=== PATIENT | female | born 1975 | race Caucasian/White ===

== ENCOUNTER 2018-04-10 20:55 | Emergency (ER) | payer OTHER ==
[~2018-04-10] VITALS: Ht 154.9 cm; Wt 102.3 kg
[2018-04-10 21:13] VITALS: Ht 154.9 cm; Wt 102.3 kg
[2018-04-10] MEDS ORDERED: GLUCOPHAGE500 MG (21:15)
[2018-04-10] MEDS ORDERED: KLONOPIN1 MG PO (21:15)
[2018-04-10] MEDS ORDERED: LIPITOR20 MG PO (21:16)
[2018-04-10] MEDS ORDERED: PROZAC20 MG PO (21:16)
[2018-04-10] MEDS ORDERED: PRINIVIL20 MG PO (21:16)
[2018-04-10 21:34] LABS: BASOPHILS 0.5 % (0-2); EOSINOPHILS 2.7 % (0-7); HEMATOCRIT 42.6 % (36.0-48.0); HEMOGLOBIN 14.6 g/dL (12-16); IMMATURE GRANULOCYTES 1.1 % (0-5); LYMPHOCYTES 30.7 % (15-50); MCHC 34.3 g/dL (31.0-37.0); MCV 87.7 fL (80.0-100.0); MEAN PLATELET VOLUME 9.7 fL (7.4-10.4); MONOCYTES 8.8 % (2-11); NEUTROPHILS 56.2 % (40-80); PLATELET COUNT 242 10x3/uL (130-400); RBC 4.86 10x6/uL (4.00-5.40); RDW 13.8 % (11.5-14.5); WBC 10.2 10x3/uL (4.8-10.8)
[2018-04-10 22:03] LABS: ALBUMIN 3.3 g/dL (3.4-5.0); ALKALINE PHOSPHATASE 134 U/L (46-116); ALT (SGPT) 54 U/L (10-68); BILIRUBIN - TOTAL 0.36 mg/dL (0.2-1.3); CALC OSMOLALITY 274 mosm/kg (275-300); CALCIUM 9.1 mg/dL (8.5-10.1); CARBON DIOXIDE 25.2 mmol/L (21.0-32.0); CHLORIDE - SERUM 99 mmol/L (98-107); CREATININE - SERUM 0.8 mg/dL (0.6-1.3); GLUCOSE 206 mg/dL (74-106); POTASSIUM - SERUM 3.8 mmol/L (3.5-5.1); PROTEIN - SERUM 6.8 g/dL (6.4-8.2); SODIUM 135 mmol/L (136-145); UREA NITROGEN 10 mg/dL (7-18); eGFR NON AFRICAN AMERICAN 84 mL/min (90-120)
[2018-04-10] MEDS ORDERED: PROTONIX40 MG PO (23:06)
[2018-04-10 23:17] VITALS: BP 132/87
== END 2018-04-10 23:21 | disposition home or self-care (01) ==
LOC: D.ER 20:55
PROVIDERS: Family Medicine
DX: K29.70 Gastritis, unspecified, without bleeding (principal); G89.29 Other chronic pain; R19.5 Other fecal abnormalities; E11.9 Type 2 diabetes mellitus without complications; I10 Essential (primary) hypertension; K21.9 Gastro-esophageal reflux disease without esophagitis; F17.200 Nicotine dependence, unspecified, uncomplicated

== ENCOUNTER 2018-07-03 14:03 | Emergency (ER) | payer OTHER ==
[~2018-07-03] VITALS: Ht 154.9 cm; Wt 106.8 kg
[~2018-07-03 14:03] MED LIST: GLUCOPHAGE500 MG; KLONOPIN1 MG PO; LIPITOR20 MG PO; PRINIVIL20 MG PO; PROTONIX40 MG PO; PROZAC20 MG PO
[2018-07-03 14:20] VITALS: Ht 154.9 cm; Wt 106.8 kg
[2018-07-03] MEDS ORDERED: ROBAXIN500 MG PO (15:49)
[2018-07-03 16:50] VITALS: BP 135/81
== END 2018-07-03 16:51 | disposition home or self-care (01) ==
LOC: D.ER 14:03
DX: R51 Headache (principal); M54.12 Radiculopathy, cervical region; M47.892 Other spondylosis, cervical region; E11.9 Type 2 diabetes mellitus without complications; I10 Essential (primary) hypertension; K21.9 Gastro-esophageal reflux disease without esophagitis

== ENCOUNTER 2019-01-12 21:30 | Observation (INO) | payer OTHER | END 2019-01-14 16:22 | disposition home or self-care (01) | LOC: D.ER 21:30 → D.M3 01-13 01:04 | PROVIDERS: ADMIT Emergency Medicine | DX: R10.13 Epigastric pain (principal); E11.65 Type 2 diabetes mellitus with hyperglycemia; G47.33 Obstructive sleep apnea (adult) (pediatric); J45.909 Unspecified asthma, uncomplicated; K21.9 Gastro-esophageal reflux disease without esophagitis; F41.9 Anxiety disorder, unspecified; D64.9 Anemia, unspecified; R16.0 Hepatomegaly, not elsewhere classified; E66.01 Morbid (severe) obesity due to excess calories; Z68.41 Body mass index [BMI] 40.0-44.9, adult; Z72.0 Tobacco use; R74.8 Abnormal levels of other serum enzymes ==

== ENCOUNTER 2019-06-05 18:39 | Inpatient (IN) | payer OTHER ==
[~2019-06-05] VITALS: Ht 154.9 cm; Wt 103.2 kg
[~2019-06-05 18:39] MED LIST changes: +CARAFATE1 G PO; +NIACIN100 MG PO; +ROBAXIN500 MG PO
[2019-06-05 19:22] LABS: CALC OSMOLALITY 282 mosm/kg (275-300); CALCIUM 8.5 mg/dL (8.5-10.1); CHLORIDE - SERUM 102 mmol/L (98-107); CREATININE - SERUM 0.8 mg/dL (0.6-1.3); GLUCOSE 218 mg/dL (74-106); SODIUM 138 mmol/L (136-145); UREA NITROGEN 12 mg/dL (7-18); eGFR NON AFRICAN AMERICAN 84 mL/min (90-120)
[2019-06-05 19:23] LABS: APTT 26.4 SECONDS (22.8-39.4); INR 0.98 (0.85-1.17); PROTIME 12.5 SECONDS (11.6-15.0)
[2019-06-05 19:30] LABS: BASOPHILS 0.2 % (0-2); EOSINOPHILS 0.3 % (0-7); HEMATOCRIT 41.1 % (36.0-48.0); HEMOGLOBIN 13.6 g/dL (12-16); IMMATURE GRANULOCYTES 1.3 % (0-5); LYMPHOCYTES 19.5 % (15-50); MCH 29.8 pg (26.0-34.0); MCHC 33.1 g/dL (31.0-37.0); MCV 90.1 fL (80.0-100.0); MEAN PLATELET VOLUME 9.7 fL (7.4-10.4); MONOCYTES 8.9 % (2-11); NEUTROPHILS 69.8 % (40-80); PLATELET COUNT 322 10x3/uL (130-400); RBC 4.56 10x6/uL (4.00-5.40); RDW 14.3 % (11.5-14.5)
[2019-06-05 19:39] LABS: ALBUMIN 3.6 g/dL (3.4-5.0); ALKALINE PHOSPHATASE 136 U/L (46-116); ALT (SGPT) 39 U/L (10-68); BILIRUBIN - TOTAL 0.35 mg/dL (0.2-1.3); CKMB 2.3 U/L (0.0-3.6); CREATINE KINASE 251 UL (21-215); PRO BNP 53 pg/mL (0-125); PROTEIN - SERUM 7.1 g/dL (6.4-8.2)
[2019-06-05 19:40] LABS: TROPONIN-I < 0.017 ng/mL (0.000-0.060)
[2019-06-05 19:45] VITALS: BP 154/79
[2019-06-05 21:03] LABS: APPEARANCE CLEAR (CLEAR); BILIRUBIN NEGATIVE (NEGATIVE); COLOR YELLOW (YELLOW); GLUCOSE 100 mg/dL (NEGATIVE); KETONE NEGATIVE (NEGATIVE); NITRITE NEGATIVE (NEGATIVE); PROTEIN NEGATIVE (NEGATIVE); SPECIFIC GRAVITY 1.025 (1.005-1.020); UROBILINOGEN NORMAL (NORMAL)
[2019-06-05 21:46] VITALS: BP 125/65
--- NOTE | 2019-06-05 23:06 | NUR ---
PT AMBULATED TO RESTROOM AT THIS TIME. NO SIGNS DISTRESS. WILL CONTINUE TO MONITOR.
--- NOTE | 2019-06-05 23:36 | NUR ---
LATE ENTRY: 06/05/19 STOP TIME FOR ZOSYN [id number]
--- NOTE | 2019-06-06 00:08 | NUR ---
TURKEY SANDWICH PROVIDED TO PT PER REQUEST. NO SIGNS DISTRESS NOTED. RESPIRATIONS EVEN AND UNLABORED. WILL CONTINUE TO MONITOR.
[2019-06-06] MEDS ORDERED: LIPITOR20 MG PO (00:35)
[2019-06-06 00:37] VITALS: BP 137/82; BMI 43.0
--- NOTE | 2019-06-06 00:40 | NUR ---
RECIEVED REPORT FROM [facility]. VSS, AAOX3, NO S/S OF DISTRESS. PIV LFA 20G PATENT AND INTACT. OCCASIONAL NON-PRODUCTIVE COUGH NOTED. NS INFUSING AT 125MLS/HR ALONGSIDE IV ATBX ON ARRIVAL. PT COMPLAIN OF CHEST AND ABDOMINAL PAIN, STATES ITS A 2/10 AT THIS TIME. PT DENIES ANY FURTHER NEED FOR COMFORT CARE. CTM. CL WITHIN REACH, SR UP X2.
[2019-06-06 04:28] VITALS: BP 133/77
[2019-06-06 05:13] LABS: BASOPHILS 0.2 % (0-2); EOSINOPHILS 0.8 % (0-7); HEMATOCRIT 37.9 % (36.0-48.0); HEMOGLOBIN 12.2 g/dL (12-16); IMMATURE GRANULOCYTES 1.1 % (0-5); MCH 29.2 pg (26.0-34.0); MCHC 32.2 g/dL (31.0-37.0); MCV 90.7 fL (80.0-100.0); MEAN PLATELET VOLUME 9.8 fL (7.4-10.4); MONOCYTES 6.5 % (2-11); NEUTROPHILS 64.4 % (40-80); PLATELET COUNT 285 10x3/uL (130-400); RBC 4.18 10x6/uL (4.00-5.40); RDW 14.6 % (11.5-14.5)
[2019-06-06 05:32] LABS: ALKALINE PHOSPHATASE 114 U/L (46-116); ALT (SGPT) 32 U/L (10-68); BILIRUBIN - TOTAL 0.29 mg/dL (0.2-1.3); CALC OSMOLALITY 283 mosm/kg (275-300); CALCIUM 7.9 mg/dL (8.5-10.1); CARBON DIOXIDE 26.1 mmol/L (21.0-32.0); CHLORIDE - SERUM 105 mmol/L (98-107); CREATININE - SERUM 0.8 mg/dL (0.6-1.3); GLUCOSE 205 mg/dL (74-106); POTASSIUM - SERUM 4.1 mmol/L (3.5-5.1); PROTEIN - SERUM 5.8 g/dL (6.4-8.2); SODIUM 139 mmol/L (136-145); UREA NITROGEN 12 mg/dL (7-18); eGFR NON AFRICAN AMERICAN 84 mL/min (90-120)
[2019-06-06 05:38] LABS: WBC 14.9 10x3/uL (4.8-10.8)
--- NOTE | 2019-06-06 07:15 | NUR ---
PT RESTING IN BED, SHIFT ASSESSMENT PERFORMED. VSS AND WNL. DENIES ANY NEEDS AT THIS TIME, WILL CONT TO FOLLOW POC
[2019-06-06 07:34] VITALS: BP 146/78
--- NOTE | 2019-06-06 08:45 | NUR ---
PT TOOK A SHOWER AND COMPLETE LINEN CHANGE PROVIDED.
[2019-06-06 08:52] VITALS: Ht 154.9 cm; Wt 103.2 kg
[2019-06-06 09:38] LABS: MONO NEGATIVE (NEGATIVE)
[2019-06-06 11:15] VITALS: BP 114/69
--- NOTE | 2019-06-06 12:30 | NUR ---
PT RESTING IN BED EATING LUNCH, DENIES ANY NEEDS AT THIS TIME, WILL CONT TO FOLLOW POC
--- NOTE | 2019-06-06 14:26 | MORECARE ---
CASE MANAGEMENT DISCHARGE SUMMARY PATIENT: LAMIN VYAS UNIT: [id number] ADM DATE: 06/05/19 AGE: 43 : [birth year] SEX: F ROOM/BED: D.1212 AUTHOR: RUBEN QUIROZ PHYSICIAN: REFERRING PHYSICIAN: LISSET OZUNA MD DATE OF SERVICE: 06/06/19 Discharge Plan Patient Name: LAMIN VYAS Facility: [facility]:[place] : 1975 Planned Disposition: Home Anticipated Discharge Date: Discharge Date: Expected LOS: Initial Reviewer: [id number] Initial Review Date: 06/06/2019 Generated: 06/06/19 3:26 pm Comments DCP- Discharge Planning Updated by [email or web address]: Destiney Malcolm on 06/06/19 1:[address] Patient Name: LAMIN VYAS Admission Status: ER Accout number: [id number] Admission Date: 06-05-2019 : 1975 Admission Diagnosis: Attending: LISSET OZUNA Current LOS: 1 Anticipated DC Date: Planned Disposition: Home Primary Insurance: [employer] INS EXCHANGE Discharge Planning Comments: CM MET WITH PATIENT AFTER OBTAINING VERBAL CONSENT. STATES PLANS TO DISCHARGE TO HOME. DISCUSSED NEED FOR HH, REHAB OR EQUIPMENT, PATIENT STATES NO NEEDS. CM WILL FOLLOW AND ASSIST NEEDED. Barrel Rifler Broach: Destiney Malcolm DCPIA - Discharge Planning Initial Assessment Updated by [email or web address]: Destiney Malcolm on 06/06/19 2:19 pm * Is the patient Alert and Oriented? Yes * PCP [place] * Pharmacy [facility] * Preadmission Environment Home with Family * ADLs Independent * Other Equipment CPAP * Additional services required to return to the preadmission environment? No * Can the patient safely return to the preadmission environment? Yes * Has this patient been hospitalized within the prior 30 days at any hospital? No Patient Name: LAMIN VYAS Page [id number] at 8316 All edits/amendments must be made on the electronic document DICTATION DATE: 06/06/19 142 [employer] SALES: COURTNEY 06/06/19 142 RPT#: [id number] DC DATE: STATUS: ADM IN [facility] [address] [facility] [place] [address] END OF REPORT
[2019-06-06 15:29] VITALS: BP 135/82
--- NOTE | 2019-06-06 17:58 | NUR ---
PT UP WALKING THE HALLS AT THIS TIME, DENIES ANY NEEDS AT THIS TIME. WILL CONT TO FOLLOW POC
[2019-06-06 19:00] VITALS: BP 138/69
--- NOTE | 2019-06-06 19:10 | NUR ---
EVENING ROUNDS COMPLETED. VSS, AAOX3, NO S/S OF DISTRESS. MORPHINE ADMINISTERED PRIOR TO SHIFT CHANGE. PT STATES PAIN IS 1/10 AT THIS TIME. HOME CPAP AT BEDSIDE. CALLED RT TO PROVIDED PT WITH DISTILLED H20. PT DENIES ANY FURTHER NEEDS AT THIS TIME. WILL CPOC. CL WITHIN REACH, BED IN LOW, SR UP X2.
[2019-06-07] VITALS (7 sets, daily range): BP systolic 124–157; BP diastolic 55–90
[2019-06-07 06:30] LABS: BASOPHILS 0.3 % (0-2); EOSINOPHILS 2.1 % (0-7); HEMATOCRIT 37.4 % (36.0-48.0); HEMOGLOBIN 11.9 g/dL (12-16); LYMPHOCYTES 31.5 % (15-50); MCH 28.9 pg (26.0-34.0); MCHC 31.8 g/dL (31.0-37.0); MCV 90.8 fL (80.0-100.0); MEAN PLATELET VOLUME 9.7 fL (7.4-10.4); NEUTROPHILS 55.1 % (40-80); PLATELET COUNT 276 10x3/uL (130-400); RBC 4.12 10x6/uL (4.00-5.40); RDW 14.6 % (11.5-14.5)
[2019-06-07 06:39] LABS: CALC OSMOLALITY 281 mosm/kg (275-300); CALCIUM 8.2 mg/dL (8.5-10.1); CARBON DIOXIDE 27.6 mmol/L (21.0-32.0); CHLORIDE - SERUM 105 mmol/L (98-107); CREATININE - SERUM 0.6 mg/dL (0.6-1.3); GLUCOSE 176 mg/dL (74-106); POTASSIUM - SERUM 3.6 mmol/L (3.5-5.1); SODIUM 140 mmol/L (136-145); UREA NITROGEN 10 mg/dL (7-18); eGFR NON AFRICAN AMERICAN > 90 mL/min (90-120)
--- NOTE | 2019-06-07 07:38 | NUR ---
PT RESTING IN BED, SHIFT ASSESSMENT PERFORMED. VSS AND WNL. DENIES ANY NEEDS AT THIS TIME, WILL CONT TO FOLLOW POC
--- NOTE | 2019-06-07 10:00 | NUR ---
PT REPORTS HAVING SEVERAL EPISODES OF DIARRHEA. NOTIFIED DIMITRI ANDINO AND NEW ORDER RECIEVED TO OBTAIN STOOL SAMPLE AND TEST FOR CDIFF
--- NOTE | 2019-06-07 12:15 | NUR ---
PT RESTING IN BED EATING LUNCH, DENIES ANY NEEDS AT THIS TIME, CALL LIGHT WITHIN REACH. WILL CONT TO FOLLOW POC
[2019-06-07 13:10] LABS: EBV - EARLY ANTIGEN AB IGG <9.0 U/mL (0.0-8.9); EBV VIRAL CAPSID AB IGG 81.6 U/mL (0.0-17.9); EBV VIRAL CAPSID AB IGM <36.0 U/mL (0.0-35.9)
--- NOTE | 2019-06-07 16:00 | NUR ---
PT TOOK SHOWER AND FULL LINEN CHANGE PROVIDED. DENIES ANY NEEDS AT THIS TIME. WILL CONT TO FOLLOW POC
--- NOTE | 2019-06-07 17:30 | NUR ---
PT RESTING IN BED, CALL LIGHT WITHIN REACH. DENIES ANY NEEDS AT THIS TIME, WILL CONT TO FOLLOW POC
--- NOTE | 2019-06-07 19:30 | NUR ---
SITTING UP IN CHAIR IN ROOM. ALERT AND ORIENTED X4. STATES SHE HAS BEEN HAVING SOME DIARRHEA SINCE YESTERDAY AND THINKS SHE HAS A VAGINAL YEAST INFECTION. RESP NONLABORED. REPORTS PROD COUGH WITH YELLOW SPUTUM BUT NONE SEEN. NONCOMPLIANT WITH DIABETIC DIET. COOKIES AND SODAS ON TABLE. NS @ 125 ML/HR INFUSING IN LT FOREARM WITHOUT DIFF. REPORTS CHRONIC PAIN IN NECK AND BACK AND RATES 6 ON PAIN SCALE. AMBULATORY. NO DISTRESS. S.O. AT BEDSIDE. CL IN REACH.
--- NOTE | 2019-06-07 21:35 | NUR ---
MEDICATED WITH MORPHINE FOR C/O CHRONIC BACK/NECK PAIN. SITTING UP IN CHAIR. CL IN REACH.
--- NOTE | 2019-06-07 22:00 | NUR ---
AMBULATING IN HALLWAY WITH SIG OTHER.
--- NOTE | 2019-06-08 01:00 | NUR ---
RESTING WITH EYES CLOSED. RESP EVEN AND NONLABORED. NO DISTRESS. CL IN REACH.
[2019-06-08 04:00] VITALS: BP 124/58
--- NOTE | 2019-06-08 04:08 | NUR ---
MEDICATED FOR C/O NECK AND BACK PAIN WITH MORPHINE. NO DISTRESS. CL IN REACH.
[2019-06-08 05:49] LABS: BASOPHILS 0.3 % (0-2); EOSINOPHILS 2.5 % (0-7); HEMATOCRIT 36.7 % (36.0-48.0); IMMATURE GRANULOCYTES 2.3 % (0-5); LYMPHOCYTES 30.2 % (15-50); MCH 29.5 pg (26.0-34.0); MCHC 32.7 g/dL (31.0-37.0); MCV 90.2 fL (80.0-100.0); MEAN PLATELET VOLUME 9.7 fL (7.4-10.4); NEUTROPHILS 57.7 % (40-80); PLATELET COUNT 268 10x3/uL (130-400); RBC 4.07 10x6/uL (4.00-5.40); RDW 14.2 % (11.5-14.5); WBC 10.3 10x3/uL (4.8-10.8)
[2019-06-08 06:22] LABS: CALCIUM 8.3 mg/dL (8.5-10.1); CARBON DIOXIDE 28.3 mmol/L (21.0-32.0); CHLORIDE - SERUM 103 mmol/L (98-107); CREATININE - SERUM 0.6 mg/dL (0.6-1.3); POTASSIUM - SERUM 3.7 mmol/L (3.5-5.1); SODIUM 138 mmol/L (136-145); eGFR NON AFRICAN AMERICAN > 90 mL/min (90-120)
[2019-06-08 06:24] LABS: CALC OSMOLALITY 280 mosm/kg (275-300); GLUCOSE 230 mg/dL (74-106); UREA NITROGEN 7 mg/dL (7-18)
--- NOTE | 2019-06-08 07:10 | NUR ---
REPORT RECIEVED FROM FOOD PROCESSOR AND PATIENT CRE ASSUMED. PATIENT LAYING IN BED WITH EYES CLOSED AND BREATHING EVENLY. WILL CONTINUE WITH PLAN OF CARE. SR UP X 2 BED IN LOW POSITION AND CALL LIGHT IN REACH.
--- NOTE | 2019-06-08 11:30 | NUR ---
PATIENT IS STABLE AND VSS. PATIENT DENIES ANY NEEDS OR PAIN. ORDERS RECEIVED FOR DC. IV DCD WITHOUT DIFFICULTY WITH ENTIRE CATHETER INTACT. PRESSURE DRESSING APPLIED. WRITTEN AND VERBAL INSTRUCTIONS GIVEN. PATIENT VERBALIZED UNDERSTANDING AND SIGNED DC INSTRUCTIONS. PATIENT TO FRONT DOOR VIA WC ACCOMPANIED BY HOSPITAL PERSONNEL. PATIENT TO PRIVATE VEHICLE DRIVEN BY FAMILY MEMEBER. PATIENT IS DC TO HOME FOR SELF CARE.
--- NOTE | 2019-06-08 17:32 | MORECARE ---
CASE MANAGEMENT DISCHARGE SUMMARY PATIENT: LAMIN VAYS UNIT: [id number] ADM DATE: 06/05/19 AGE: 43 : [birth year] SEX: F ROOM/BED: D.1212 AUTHOR: GABRIELLADOC PHYSICIAN: REFERRING PHYSICIAN: LISSET OZUNA MD DATE OF SERVICE: 06/08/19 Discharge Plan Patient Name: LAMIN VYAS Facility: [facility]:[place] : 1975 Planned Disposition: Home Anticipated Discharge Date: Discharge Date: 06/08/2019 Expected LOS: Initial Reviewer: [email or web address] Initial Review Date: 06/06/2019 Generated: 06/08/19 6:31 pm Comments DCP- Discharge Planning Updated by [email or web address]: Christiana Aiken on 06/08/19 4:[address] Patient Name: LAMIN VYAS Encounter No: [id number] : 1975 Primary Insurance: [employer] INS EXCHANGE Anticipated DC Date: Planned Disposition: Home External Planned Provider: : DENIES ANY NEEDS DCP follow-up note: Patient and family in agreement with discharge plan. No changes to plan. Case management will follow and assist as needed. Christiana Aiken DCP- Discharge Planning Updated by [email or web address]: Destiney Malcolm on 06/06/19 1:[address] Patient Name: LAMIN VYAS Admission Status: ER Accout number: [id number] Admission Date: 06-05-2019 : 1975 Admission Diagnosis: Attending: LISSET OZUNA Current LOS: 1 Anticipated DC Date: Planned Disposition: Home Primary Insurance: [employer] INS EXCHANGE Discharge Planning Comments: CM MET WITH PATIENT AFTER OBTAINING VERBAL CONSENT. STATES PLANS TO DISCHARGE TO HOME. DISCUSSED NEED FOR HH, REHAB OR EQUIPMENT, PATIENT STATES NO NEEDS. CM WILL FOLLOW AND ASSIST NEEDED. Neuroradiologist: Destiney Malcolm DCPIA - Discharge Planning Initial Assessment Updated by [id number]: Destiney Malcolm on 06/06/19 2:19 pm * Is the patient Alert and Oriented? Yes * PCP [place] * [facility] * Preadmission Environment Home with Family * ADLs Independent * Other Equipment CPAP * Additional services required to return to the preadmission environment? No * Can the patient safely return to the preadmission environment? Yes * Has this patient been hospitalized within the prior 30 days at any hospital? No Last DP export: 06/06/19 1:26 Patient Name: LAMIN VYAS Page 49098 at 1732 All edits/amendments must be made on the electronic document DICTATION DATE: 06/08/191730 FACING MACHINE OPERATOR: COURTNEY 06/08/191730 RPT#: [id number] DC DATE:06/08/19 STATUS: DIS IN [facility] [address] [place] [address] END OF REPORT
--- NOTE | 2019-06-08 17:40 | MORECARE ---
CASE MANAGEMENT DISCHARGE SUMMARY PATIENT: LAMIN VYAS UNIT: [id number] ADM DATE: 06/05/19 AGE: 43 : [birth year] SEX: F ROOM/BED: D.1212 AUTHOR: GABRIELLADOC PHYSICIAN: REFERRING PHYSICIAN: LISSET OZUNA MD DATE OF SERVICE: 06/08/19 Discharge Plan Patient Name: LAMIN VYAS Facility: [facility]:[place] : 1975 Planned Disposition: Home Anticipated Discharge Date: Discharge Date: 06/08/2019 Expected LOS: Initial Reviewer: [id number] Initial Review Date: 06/06/2019 Generated: 06/08/19 6:39 pm Comments DCP- Discharge Planning Updated by [email or web address]: Christiana Aiken on 06/08/19 4:[address] Patient Name: LAMIN VYAS Encounter No: [id number] : 1975 Primary Insurance: [employer] INS EXCHANGE Anticipated DC Date: Planned Disposition: Home External Planned Provider: : DENIES ANY NEEDS DCP follow-up note: Patient and family in agreement with discharge plan. No changes to plan. Case management will follow and assist as needed. Christiana Aiken DCP- Discharge Planning Updated by [email or web address]: Destiney Malcolm on 06/06/19 1:[address] Patient Name: LAMIN VYAS Admission Status: ER Accout number: [id number] Admission Date: 06-05-2019 : 1975 Admission Diagnosis: Attending: LISSET OZUNA Current LOS: 1 Anticipated DC Date: Planned Disposition: Home Primary Insurance: [employer] INS EXCHANGE Discharge Planning Comments: CM MET WITH PATIENT AFTER OBTAINING VERBAL CONSENT. STATES PLANS TO DISCHARGE TO HOME. DISCUSSED NEED FOR HH, REHAB OR EQUIPMENT, PATIENT STATES NO NEEDS. CM WILL FOLLOW AND ASSIST NEEDED. Director Of Event Management: Destiney Malcolm DCPIA - Discharge Planning Initial Assessment Updated by [id number]: Destiney Malcolm on 06/06/19 2:19 pm * Is the patient Alert and Oriented? Yes * PCP [place] * [facility] * Preadmission Environment Home with Family * ADLs Independent * Other Equipment CPAP * Additional services required to return to the preadmission environment? No * Can the patient safely return to the preadmission environment? Yes * Has this patient been hospitalized within the prior 30 days at any hospital? No Last DP export: 06/08/19 4:32 Patient Name: LAMIN VYAS Page [id number] at 1740 All edits/amendments must be made on the electronic document DICTATION DATE: 06/08/191739 PATIENT CARE DIRECTOR: COURTNEY 06/08/191739 RPT#: [id number] DC DATE:06/08/19 STATUS: DIS IN [facility] [address] [place] [address] END OF REPORT
== END 2019-06-08 11:30 | disposition home or self-care (01) | DRG 202 ==
LOC: D.ER 18:39 → D.M3 22:41
PROVIDERS: Family Medicine; ADMIT Internal Medicine Nephrology; ATTEND Internal Medicine Nephrology
DX: J20.9 Acute bronchitis, unspecified (principal); J44.0 Chronic obstructive pulmonary disease with (acute) lower respiratory infection; F17.213 Nicotine dependence, cigarettes, with withdrawal; J44.1 Chronic obstructive pulmonary disease with (acute) exacerbation; Z68.41 Body mass index [BMI] 40.0-44.9, adult; B27.90 Infectious mononucleosis, unspecified without complication; N83.202 Unspecified ovarian cyst, left side; I10 Essential (primary) hypertension; E78.5 Hyperlipidemia, unspecified; E11.9 Type 2 diabetes mellitus without complications; G47.33 Obstructive sleep apnea (adult) (pediatric); K21.9 Gastro-esophageal reflux disease without esophagitis; F43.10 Post-traumatic stress disorder, unspecified; E66.01 Morbid (severe) obesity due to excess calories; F41.9 Anxiety disorder, unspecified